=== PATIENT | male | born 1965 | race Caucasian/White ===

== ENCOUNTER 2025-01-28 14:44 | Emergency (ER) | payer OTHER, SELFPAY ==
[2025-01-28 15:00] VITALS: BP 138/77; PULSE 106; RESP 20; TEMP 37; O2SAT 95
--- NOTE | 2025-01-28 15:27 | XR_ITS ---
Examination: Ribs, left, with PA chest, 5 views Technique: Chest PA, RIBS AP, RPO, LPO, AP coned lower ribs 5 views Exam date and time: January 28, 2025 CT 11 hours INDICATIONS: Patient fell last week with left chest, persistent left rib pain FINDINGS: Normal heart size [id number] hyperexpansion. No pneumothorax. Moderate osteopenia Acute fracture left eighth ninth ribs in the midaxillary line with minimal offset Impression: Acute fractures left eighth and ninth ribs without significant displacement
--- NOTE | 2025-01-28 15:38 | PD.EDFALL ---
ED Fall Injury RME/HPI General Chief Complaint: Fall Stated Complaint: Fall, left side pain Time Seen by Provider: 01/28/25 15:01 Source: patient Arrival date/time: 01/28/25 14:44 59-year-old male with no known medical history presents to the emergency room with a chief complaint of tenderness and pain to his left rib cage after a ground-level fall that occurred last Tuesday. Mode of arrival: ambulatory Limitations: no limitations Related Data Allergies Allergy/AdvReac Type Severity Reaction Status Date / Time No Known Drug Allergies Allergy Verified 01/28/25 14:48 Review of Systems Review of Systems Systems Reviewed: All systems reviewed, normal except as documented Constitutional Constitutional: Reports system reviewed and no additional complaints, except as documented, Denies fatigue, Denies fever(s), Denies headache(s) and Denies weakness Eyes Eyes: Reports system reviewed and no additional complaints, except as documented, Denies blurry vision and Denies change in vision ENT Ears, Nose, Mouth, and Throat: Reports system reviewed and no additional complaints, except as documented, Denies otalgia, Denies headache(s), Denies nasal congestion, Denies throat swelling and Denies vertigo Cardiovascular Cardiovascular: Reports system reviewed and no additional complaints, except as documented, Denies chest pain, Denies dyspnea and Denies dyspnea on exertion Respiratory Respiratory: Reports system reviewed and no additional complaints, except as documented, Denies chest congestion, Denies cough, Denies dyspnea, Denies dyspnea on exertion and Denies wheezing Gastrointestinal Gastrointestinal: Reports system reviewed and no additional complaints, except as documented, Denies abdominal pain, Denies cramping, Denies nausea and Denies vomiting Genitourinary Genitourinary: Reports system reviewed and no additional complaints, except as documented, Denies dysuria and Denies hematuria Musculoskeletal Musculoskeletal: Reports system reviewed and no additional complaints, except as documented, Reports arthralgias and Denies back pain Integumentary/Breasts Skin/Breast: Reports system reviewed and no additional complaints, except as documented and Denies wounds Neurologic Neurologic: Reports system reviewed and no additional complaints, except as documented, Denies confusion, Denies headache(s), Denies lack of coordination, Denies vertigo and Denies weakness Psychiatric Psychiatric: Reports system reviewed and no additional complaints, except as documented, Denies anxiety, Denies confusion, Denies depression, Denies paranoia, Denies suicidal ideation and Denies tactile hallucinations Endocrine Endocrine: Reports system reviewed and no additional complaints, except as documented and Denies fatigue Hematologic/Lymphatic Hematologic/Lymphatic: Reports system reviewed and no additional complaints, except as documented and Denies lymphadenopathy Allergic/Immunologic Allergic/Immunologic: Reports system reviewed and no additional complaints, except as documented, Denies throat swelling, Denies urticaria and Denies wheezing ED Exam General Limitations: Present no limitations General appearance: Present alert and in no apparent distress Head Head exam: Present atraumatic Eye Eye exam: Present normal appearance, PERRL and EOMI ENT ENT exam: Present normal exam, normal oropharynx and mucous membranes moist Neck Neck exam: Present normal inspection, full ROM and trachea midline Chest Chest inspection: Present normal inspection, symmetric chest wall rise and tenderness Expanded Chest Exam Breast: left: tenderness Respiratory Respiratory exam: Present normal lung sounds bilaterally; Absent respiratory distress, wheezes, stridor, accessory muscle use or prolonged expiratory phase Cardiovascular Cardiovascular exam: Present regular rate, normal rhythm and normal heart sounds Abdominal Exam Abdominal exam: Present soft and normal bowel sounds Extremities Exam Extremities exam: Present normal inspection and full ROM Back Exam Back exam: Present normal inspection and full ROM Neurological Exam Neurological exam: Present alert, oriented X3 and CN II-XII intact Psychiatric Psychiatric exam: Present normal affect and normal mood Skin Skin exam: Present warm, dry, intact and normal color Course Quality Measures none Orders Category Date Time Status XR ribs LT min 3V w CXR1V Stat Exams 01/28/25 15:27 Ordered Ketorolac Inj [Toradol Inj] Med 01/28/25 15:27 Discontinued 30 mg IM X1 ONE Vital Signs Vital signs: Vital Signs Temperature 98.6 F 01/28/25 15:00 Pulse Rate 106 H 01/28/25 15:00 Respiratory Rate 20 01/28/25 15:00 Blood Pressure 138/77 H 01/28/25 15:00 Pulse Oximetry (%) 95 01/28/25 15:00 Oxygen Delivery Method Room Air 01/28/25 15:00 Fall MDM Narrative MDM Narrative:: 59-year-old male with no known medical history presents to the emergency room with a chief complaint of tenderness and pain to his left rib cage after a ground-level fall that occurred last Tuesday. Patient data External records reviewed:: [facility] previous records Clinical information provided by:: patient Social determinants that could affect healthcare access:: none Patient has the following chronic illnesses:: No chronic illness How is presenting disease/condition affected by chronic disease/condition?: no chronic disease Evaluation data The following diagnostics were reviewed and interpreted by me:: lab results and radiology exam(s) Lab and/or radiology exams considered but not ordered:: Labs and radiology exams considered in order Interpretation Summary: Rib x-ray- Medications / Prescriptions Medications or Prescriptions considered but not ordered:: Medication given Medication administrations:: Medication Administration History Discontinued Medications Ketorolac Tromethamine (Ketorolac Inj 60 Mg/2 Ml Vial) 30 mg IM X1 ONE Stop: 01/28/25 15:28 Medication given Consultations Consultation(s) initiated? (list below): No Diagnosis Fall Differential Diagnosis: other (Rib contusion/rib fracture) Admission Indicated Admission indicated?: not indicated Admission Request Was there a request for admission?: No Disposition Plan Disposition Plan: Discharge Discharge Attestation Discharge Attestation: The patient and all family members were given an opportunity to ask questions and understood the discharge instructions. Discharge instructions specifically effects, indications for sooner follow up or return to the emergency department, and the expected course of current diagnosis. Patient condition: Stable Discharge Plan Prescriptions/Referrals Referrals: No Primary/Family,Physician [Primary Care Provider] - In 1 week Patient/Caregiver Discharge Instructions Print Language: Slovak
[2025-01-28] MEDS: KETOROLAC INJ 60 MG/2 ML VIAL 30 MG IM (15:44)
--- NOTE | 2025-01-28 18:02 | EDRME_ITS ---
Rapid Medical Screening [facility] Arrival date/time: 01/28/25 14:44 59-year-old male with no known medical history presents to the emergency room with a chief complaint of tenderness and pain to his left rib cage after a ground-level fall that occurred last Tuesday. I have greeted and performed a focused initial assessment of this patient. A comprehensive ED assessment and evaluation of the patient, analysis of all test results, and completion of the medical decision making process will be conducted by additional ED providers. Chief Complaint: Fall Time Seen by Provider: 01/28/25 15:01 Vital signs: Vital Signs Temperature 98.6 F 01/28/25 15:00 Pulse Rate 106 H 01/28/25 15:00 Respiratory Rate 20 01/28/25 15:00 Blood Pressure 138/77 H 01/28/25 15:00 Pulse Oximetry (%) 95 01/28/25 15:00 Oxygen Delivery Method Room Air 01/28/25 15:00 Vital signs reviewed by provider: Yes
--- NOTE | 2025-01-28 18:21 | PD.EDADULT ---
ED General RME/HPI General Chief complaint: Fall Stated complaint: Fall, left side pain Time Seen by Provider: 01/28/25 15:01 Arrival date/time: 01/28/25 14:44 Left-sided chest pain HPI status post fall walking his dog approximately 2 days ago denies shortness of breath difficulty breathing RME / HPI RME / HPI narrative: 01/28/25 14:44 59-year-old male with no known medical history presents to the emergency room with a chief complaint of tenderness and pain to his left rib cage after a ground-level fall that occurred last Tuesday. I have greeted and performed a focused initial assessment of this patient. A comprehensive ED assessment and evaluation of the patient, analysis of all test results, and completion of the medical decision making process will be conducted by additional ED providers. Related Data Previous Rx's ?Medication ?Instructions ?Recorded meloxicam 7.5 mg tablet 7.5 mg PO QDAY #10 tabs 01/28/25 Allergies Allergy/AdvReac Type Severity Reaction Status Date / Time No Known Drug Allergies Allergy Verified 01/28/25 14:48 Review of Systems Review of Systems Narrative Review of Systems: GEN: No fever, no chills, no weight loss EYES: No discharge, no visual changes, no pain HEENT: No ear pain, no congestion, no sore throat PULM: No shortness of breath, no cough, no congestion CV: + chest pain, no dyspnea on exertion, no palpitations GI: No nausea, no vomiting, no diarrhea, no pain, no constipation : No frequency, no urgency, no dysuria MUSC/SKEL: No joint pain, no back pain SKIN: No rash PSYCH: No hallucinations, no depression HEME/LYMPH: No easy bleeding or bruising tendencies NEURO: No weakness, no headache Past Medical History Social History SMOKING STATUS: Current every day smoker ED Exam Narrative Physical exam: [General: Not in any acute distress Head normocephalic HEENT: Within acceptable limits Neck is supple nontender Chest equal chest rise left-sided tenderness with palpation no gross abnormalities no seesaw breathing. Respiratory: Clear to auscultation no wheezes crackles or rubs CV: Rate rhythm is regular no murmurs rubs or clicks Abdomen is soft nontender no masses positive bowel sounds all 4 quadrants Back: No CVA tenderness no spinous process tenderness from cervical spine thoracic and lumbar spine Skin: Intact no petechiae rash induration ulceration or crepitus Extremities: Moving all extremity against resistance cap refill less than 2 seconds neurosensory intact Neuro: Awake alert oriented x3 Glascow coma 15 no focal deficits] Course Quality Measures none Orders Category Date Time Status XR ribs LT min 3V w CXR1V Stat Exams 01/28/25 15:27 Completed Ketorolac Inj [Toradol Inj] Med 01/28/25 15:27 Discontinued 30 mg IM X1 ONE Vital Signs Vital signs: Vital Signs Temperature 98.6 F 01/28/25 15:00 Pulse Rate 106 H 01/28/25 15:00 Respiratory Rate 20 01/28/25 15:00 Blood Pressure 138/77 H 01/28/25 15:00 Pulse Oximetry (%) 95 01/28/25 15:00 Oxygen Delivery Method Room Air 01/28/25 15:00 Discharge Plan Plan Patient Disposition: HOME (Self Care) Patient condition on transfer: Stable Prescriptions/Referrals Prescriptions/Med Rec: New meloxicam 7.5 mg tablet 7.5 mg PO QDAY Qty: 10 0RF Referrals: Geoff Lizama MD [Physician] - In 1 week No Primary/Family,Physician [Primary Care Provider] - In 1 week Problem List Clinical Impression: Fall, Closed rib fracture Patient/Caregiver Discharge Instructions Education Materials: Rib Fracture (Broken Rib) Additional Instructions: Take the medication as prescribed with is worsening of symptoms return the emergency room medially for further evaluation. Print Language: Mohawk Stand Alone Forms: Rylee Award Info., Patient Portal Info Letter, Work/School Release PA/FLIGHT ATTENDANT Supervising Physician PA/FLIGHT ATTENDANT Supervising Physician: Williams Steven ENP [facility] Medication Administration(s) Medication Administration History Discontinued Medications Ketorolac Tromethamine (Ketorolac Inj 60 Mg/2 Ml Vial) 30 mg IM X1 ONE Stop: 01/28/25 15:28 Last Admin: 01/28/25 15:44 Dose: 30 mg Documented By:
== END 2025-01-28 18:28 | disposition home or self-care (01) ==
PROVIDERS: Emergency Provider Family Medicine
DX: S22.42XA Multiple fractures of ribs, left side, initial encounter for closed fracture (principal); F17.210 Nicotine dependence, cigarettes, uncomplicated; W18.30XA Fall on same level, unspecified, initial encounter; Y93.K1 Activity, walking an animal
CPT/HCPCS: 71101; 96372; 99283; J1885